=== PATIENT | female | born 1940 | race Caucasian/White ===

== ENCOUNTER 2020-08-31 11:40 | Emergency (ER) | payer MEDICARE, OTHER ==
[~2020-08-31] VITALS: Ht 167.7 cm; Wt 59.0 kg
--- NOTE | 2020-08-31 12:36 | ED General ---
General Chief Complaint: Dizziness/Syncope Stated Complaint: LIGHTHEADED; DIZZINESS; JOSE EYE PAIN Source of Information: Patient, Family History of Present Illness Date Seen by Provider: Aug 31, 2020 Time Seen by Provider: 11:51 Initial Comments 79-year-old female presenting with concerns for possible thyroid issue and wanting evaluated for having memory issues and general weakness for the last several weeks to months. She had her thyroid surgically removed in the remote past and says it was due to hyperthyroid or overactive thyroid. She has been taking [facility] Thyroid and is not sure if any dosing and has not followed up with anyone for several years to have any blood work done on her thyroid levels. In the last few weeks she has had swelling to her eyes and some drainage from the right eye. She has had increasing confusion and weakness. She denies any pain or burning with urination. She has had weakness where she has difficulty getting up and walking but has not actually fallen or hit her head. She denies any heart history or cancer history. She denies being short of breath or having a cough. She denies fever or chills. She is alert and oriented x3 states at times she has trouble remembering things Timing/Duration: Getting Worse (over the last few weeks to months) Associated Systoms: No Chest Pain, No Cough, No Diaphoresis, No Fever/Chills, No Headaches; Loss of Appetite (not really eating or drinking much in last few weeks), Malaise; No Nausea/Vomiting, No Rash, No Seizure, No Shortness of Air, No Syncope; Weakness (general), Other (chokes and coughs when she tries to drink water or eat) Allergies and Home Medications Allergies Coded Allergies: No Known Drug Allergies (Unverified , 08/31/20) Home Medications Unable to Obtain Active Prescriptions or Reported Meds Patient Home Medication List Home Medication List Reviewed: Yes Review of Systems Review of Systems Constitutional: No chills, No diaphoresis; dizziness; No fever; malaise, weakness EENTM: see HPI Respiratory: no symptoms reported Cardiovascular: no symptoms reported Gastrointestinal: see HPI Genitourinary: no symptoms reported Musculoskeletal: no symptoms reported Skin: no symptoms reported Psychiatric/Neurological: Denies Headache, Denies Numbness; Weakness (generalized) Past Uccsdhj-Dqvgen-Yohnii Hx Past Med/Social Hx: Reviewed Nursing Past Med/Soc Hx Past Medical History Surgeries: Yes Abdominal, Hysterectomy, Thyroidectomy Respiratory: No Cardiac: No Neurological: No Reproductive Disorders: No CHEF UNDER History: Hysterectomy Genitourinary: No Gastrointestinal: No Musculoskeletal: No Endocrine: Yes Hypothyroidsim (since surgery to remove Thyroid due to it being overactive) HEENT: No Cancer: No Psychosocial: No Physical Exam Vital Signs Vital Signs - First Documented 08/31/20 12:02 Temp 37.2 Pulse 80 Resp 20 B/P (MAP) 156/82 (106) Pulse Ox 98 O2 Delivery Room Air Capillary Refill : Height, Weight, BMI Height: '" Weight: lbs. oz. kg; BMI Method: General Appearance: No Apparent Distress, Thin, Other (bilateral exophthalmos, right worse than left) Eyes: Bilateral Eye PERRL, Bilateral Eye EOMI, Bilateral Eye Other (bilateral exophthalmos, right worse then left. some yellow drainage from right eye.) HEENT: Pharynx Normal Neck: Non Tender, Supple Respiratory: Chest Non Tender, Lungs Clear, Normal Breath Sounds, No Accessory Muscle Use, No Respiratory Distress Cardiovascular: Regular Rate, Rhythm, Normal Peripheral Pulses Gastrointestinal: Normal Bowel Sounds, No Pulsatile Mass, Non Tender, Soft Rectal: Deferred Extremity: Normal Capillary Refill, Normal Inspection, Non Tender, No Calf Tenderness, No Pedal Edema Neurologic/Psychiatric: Alert, Oriented x3, production machine tender II-XII Norm as Tested Skin: Normal Color, Warm/Dry Progress/Results/Core Measures Suspected Sepsis SIRS Temperature: Pulse: Respiratory Rate: Laboratory Tests 08/31/20 12:03: White Blood Count 8.5 Blood Pressure / Mean: Laboratory Tests 08/31/20 12:03: Creatinine 0.85, Platelet Count 298, Total Bilirubin 0.6 Results/Orders Lab Results Laboratory Tests Test 08/31/20 12:03 Range/Units White Blood Count 8.5 4.3-11.0 10^3/uL Red Blood Count 5.05 4.35-5.85 10^6/uL Hemoglobin 14.9 11.5-16.0 G/DL Hematocrit 44 35-52 % Mean Corpuscular Volume 86 80-99 FL Mean Corpuscular Hemoglobin 30 25-34 PG Mean Corpuscular Hemoglobin Concent 34 32-36 G/DL Red Cell Distribution Width 13.2 10.0-14.5 % Platelet Count 298 130-400 10^3/uL Mean Platelet Volume 10.3 7.4-10.4 FL Immature Granulocyte % (Auto) 0 % Neutrophils (%) (Auto) 80 H 42-75 % Lymphocytes (%) (Auto) 13 12-44 % Monocytes (%) (Auto) 7 0-12 % Eosinophils (%) (Auto) 0 0-10 % Basophils (%) (Auto) 0 0-10 % Neutrophils # (Auto) 6.8 1.8-7.8 X 10^3 Lymphocytes # (Auto) 1.1 1.0-4.0 X 10^3 Monocytes # (Auto) 0.6 0.0-1.0 X 10^3 Eosinophils # (Auto) 0.0 0.0-0.3 10^3/uL Basophils # (Auto) 0.0 0.0-0.1 10^3/uL Immature Granulocyte # (Auto) 0.0 0.0-0.1 10^3/uL Sodium Level 138 135-145 MMOL/L Potassium Level 3.5 L 3.6-5.0 MMOL/L Chloride Level 93 L 98-107 MMOL/L Carbon Dioxide Level 25 21-32 MMOL/L Anion Gap 20 H 5-14 MMOL/L Blood Urea Nitrogen 37 H 7-18 MG/DL Creatinine 0.85 0.60-1.30 MG/DL Estimat Glomerular Filtration Rate > 60 BUN/Creatinine Ratio 44 Glucose Level 92 70-105 MG/DL Calcium Level 9.6 8.5-10.1 MG/DL Corrected Calcium 9.8 8.5-10.1 MG/DL Magnesium Level 2.3 1.6-2.4 MG/DL Total Bilirubin 0.6 0.1-1.0 MG/DL Aspartate Amino Transf (AST/SGOT) 26 5-34 U/L Alanine Aminotransferase (ALT/SGPT) 16 0-55 U/L Alkaline Phosphatase 103 40-136 U/L Troponin I < 0.30 <0.30 NG/ML Pro-B-Type Natriuretic Peptide 718.4 H <75.0 PG/ML Total Protein 7.0 6.4-8.2 GM/DL Albumin 3.8 3.2-4.5 GM/DL Thyroid Stimulating Hormone (TSH) 0.14 L 0.35-4.94 UIU/ML Free Thyroxine 0.67 L 0.70-1.48 NG/DL Salicylates Level < 0.3 L 5.0-20.0 MG/DL Acetaminophen Level < 10 L 10-30 UG/ML Serum Alcohol < 10 <10 MG/DL My Orders Orders - TURNER RYAN MD Ua Culture If Indicated (08/31/20 12:17) Cbc With Automated Diff (08/31/20 12:17) Comprehensive Metabolic Panel (08/31/20 12:17) Alcohol (08/31/20 12:17) Drug Screen Stat (Urine) (08/31/20 12:17) Acetaminophen (08/31/20 12:17) Salicylate (08/31/20 12:17) Ekg Tracing (08/31/20 12:17) Ed Iv/Invasive Line Start (08/31/20 12:17) Monitor-Rhythm Ecg Trace Only (08/31/20 12:17) Troponin I Fs (08/31/20 12:17) Probnp Fs (08/31/20 12:17) Magnesium (08/31/20 12:17) Thyroid Stimulating Hormone (08/31/20 12:17) Free T4 (Free Thyroxine) (08/31/20 12:17) Triiodothyronine Total T3 (08/31/20 12:17) Ct Head Wo (08/31/20 12:25) Ct Orbit/Sella/Iac Wo (08/31/20 12:25) Ns Iv 1000 Ml (Sodium Chloride 0.9%) (08/31/20 14:15) Vital Signs/I&O 08/31/20 12:02 Temp 37.2 Pulse 80 Resp 20 B/P (MAP) 156/82 (106) Pulse Ox 98 O2 Delivery Room Air Capillary Refill : Progress Note #1: Progress Note obtain labs and ECG to evaluate for electrolyte imbalance or signs of infection. CT head and orbits to evaluate her memory issues and exophthalmos. Progress Note #2: Progress Note labs stable without acute significant abnormality to account for her symptoms. She did have a soft tissue mass in sinuses and nose that was causing some bony destruction and erosion of her frontal sinuses and vasogenic edema of frontal cortex bilateral lobes. When advised of this she and her friend requested to go to [facility] in . 1414 called transfer line at [facility] and spoke with DYLAN Sarabia. She advised that at this time they do not have any beds and are currently holding several patients in the ED. It is possible there might be discharges and a bed may open up this evening or tomorrow but she could not say for sure. Updated pt and friend and advised that no beds available currently at [facility] and they requested [facility] and if they did not have a bed, [facility], then [facility] if no beds. 1435 call to [facility] and spoke with DYLAN Li, at transfer line. She to ok pt info and will check about admit but they are also tight on beds at . 1655 transfer center called back and Dr. Blackmon is accepting physician and awaiting bed assignment. ECG Initial ECG Impression Date: Aug 31, 2020 Initial ECG Impression Time: 12:35 Initial ECG Rate: 79 Initial ECG Rhythm: Normal Sinus Initial ECG Comparisson: No Previous ECG Available Comment Normal sinus rhythm with a heart rate of 79 bpm. [place] interval 111 ms. QT interval 416 ms with a QTc interval 477 ms. She does have premature atrial complexes. Q waves in V1 and V2. No acute ST elevation. No prior tracing available for comparison. Diagnostic Imaging Diagonstic Imaging: CT Plain Films/CT/US/NM/MRI: head (and orbits) Comments [facility] [place], [place] NAME: DEEPIKA CALHOUN [facility] REC#: [id number] PT STATUS: REG ER : 1940 PHYSICIAN: TURNER RYAN MD ADMIT DATE: 08/31/20/ER FS Draft Date of Exam:08/31/20 CT HEAD WO EXAMINATION: CT head without contrast. TECHNIQUE: Multiple contiguous axial images were obtained through the brain without the use of intravenous contrast. All CT scans use one or more of the following dose optimizing techniques: automated exposure control, MA and/or KvP adjustment based on patient size and exam type or iterative reconstruction. HISTORY: Confusion and general weakness, worsening over weeks to months. COMPARISON: None available. FINDINGS: Mild diffuse cerebral volume loss with proportional enlargement of the ventricles and sulci. There is decreased sulcation along the right frontal lobe due to significant underlying edema within the right and left frontal lobes. The midline right and left frontal lobes demonstrate a heterogeneous appearance with gyral thickening. No acute intracranial hemorrhage or abnormal extra-axial fluid collections are present. Calcification of the intracranial ICAs. No hyperdense vessel. There is soft tissue attenuation seen throughout the nasal cavity, mastoid air cells, right ethmoid, and sphenoid sinuses as well as within the frontal sinuses. There is apparent erosion of the posterior and anterior frontal sinuses within the location of heterogeneity seen within the frontal lobe parenchyma. Soft tissue extends from the nasal cavity anteriorly along the nasal bones medial to the orbits. The mastoid air cells are clear. The visualized paranasal sinuses are clear. Please see the same day CT of the orbits for a more detailed discussion. IMPRESSION: Expansile, erosive soft tissue attenuation within the nasal cavity and paranasal sinuses which erodes posteriorly through the frontal sinuses and involves the bilateral anterior frontal lobes. This causes significant vasogenic edema within the bilateral frontal lobes posterior to the area of heterogeneity. This finding could represent an aggressive neoplastic or infectious process. Dictated on workstation # [id number] Dict: 08/31/20 1303 Trans: 08/31/20 1311 [id number] Interpreted by: BRICE JOE DO Electronically signed by: [facility] [place] NAME: ENRIQUE CALHOUN [facility] REC#: [id number] PT STATUS: REG ER : 1940 PHYSICIAN: TURNER RYAN MD ADMIT DATE: 08/31/20/ER FS Signed Date of Exam:08/31/20 CT ORBIT/SELLA/IAC WO PROCEDURE: CT orbit without contrast. TECHNIQUE: Multiple contiguous axial images were obtained through the facial bones without the use of intravenous contrast. Auto Exposure Controls were utilized during the CT exam to meet ALARA standards for radiation dose reduction. INDICATION: Right eye swelling and drainage. There is a complete opacification of the maxillary sinuses as well as the ethmoid and frontal sinuses. There is bony erosion both anteriorly and posteriorly through the calvarium especially within the frontal region. There is a diffuse edema throughout the frontal lobes bilaterally. No definite extra-axial fluid collections are seen. There is soft tissue swelling about the mid frontal region extending to the nose more prominent on the right. IMPRESSION: 1. Diffuse sinusitis or tumor throughout the paranasal sinuses. There is marked bony erosion noted within the ethmoid sinuses and frontal sinuses with associated soft tissue swelling. Diffuse white matter edema noted as well as some cortical gyri edema as well as in the frontal lobes. No discrete mass is seen. This likely is postinflammatory in nature. Would consider MRI of the head and face with and without IV gadolinium for further evaluation. Dictated by: Dictated on workstation # [id number] Dict: 08/31/20 1351 Trans: 08/31/20 1652 CVB [id number] Interpreted by: HAKAN THORNTON MD Electronically signed by: HAKAN THORNTON MD 08/31/20 165 Reviewed: Reviewed by Me Departure Impression Primary Impression: Mass of nasal sinus Additional Impressions: Exophthalmos Generalized weakness Disposition: 02 XFER SHT-TRM HOSP Condition: Stable Transfer Transfer Reason: Exceeds level of care (Needs ENT, Neurosurgery, possibly Oncology) Time Spoke to Accepting Phy: 16:55 Transfer Progress Notes 1435 call placed to [facility] about transfer of patient. I spoke with Jen Hall RN, at the transfer center. She did advise me that the hospital is tight on beds currently but will speak with admitting providers and try to find a bed and call back when a bed is available. 4525 DYLAN Li, from [facility] transfer center called and Dr. Blackmon accepting. Will call back once a bed assignment has been made. Transfer Facility: [facility] Method of Transfer: EMS Departure-Patient Inst. Referrals: NO,LOCAL PHYSICIAN (PCP/Family) Primary Care Physician Scripts Unable to Obtain Active Prescriptions or Reported Meds TURNER RYAN MD Aug 31, 2020 12:36
--- NOTE | 2020-08-31 13:12 | Diagnostic Imaging Report ---
EXAMINATION: CT head without contrast. TECHNIQUE: Multiple contiguous axial images were obtained through the brain without the use of intravenous contrast. All CT scans use one or more of the following dose optimizing techniques: automated exposure control, MA and/or KvP adjustment based on patient size and exam type or iterative reconstruction. HISTORY: Confusion and general weakness, worsening over weeks to months. COMPARISON: None available. FINDINGS: Mild diffuse cerebral volume loss with proportional enlargement of the ventricles and sulci. There is decreased sulcation along the right frontal lobe due to significant underlying edema within the right and left frontal lobes. The midline right and left frontal lobes demonstrate a heterogeneous appearance with gyral thickening. No acute intracranial hemorrhage or abnormal extra-axial fluid collections are present. Calcification of the intracranial ICAs. No hyperdense vessel. There is soft tissue attenuation seen throughout the nasal cavity, mastoid air cells, right ethmoid, and sphenoid sinuses as well as within the frontal sinuses. There is apparent erosion of the posterior and anterior frontal sinuses within the location of heterogeneity seen within the frontal lobe parenchyma. Soft tissue extends from the nasal cavity anteriorly along the nasal bones medial to the orbits. The mastoid air cells are clear. The visualized paranasal sinuses are clear. Please see the same day CT of the orbits for a more detailed discussion. IMPRESSION: Expansile, erosive soft tissue attenuation within the nasal cavity and paranasal sinuses which erodes posteriorly through the frontal sinuses and involves the bilateral anterior frontal lobes. This causes significant vasogenic edema within the bilateral frontal lobes posterior to the area of heterogeneity. This finding could represent an aggressive neoplastic or infectious process. Dictated by: Dictated on workstation # [id number]
[2020-08-31 13:15] LABS: HEMATOCRIT 44 % (35-52); HEMOGLOBIN 14.9 G/DL (11.5-16.0); MEAN CORPUSCULAR HEMOGLOBIN 30 PG (25-34); MEAN CORPUSCULAR HGB CONC 34 G/DL (32-36); MEAN CORPUSCULAR VOLUME 86 FL (80-99); MEAN PLATELET VOLUME 10.3 FL (7.4-10.4); PLATELET COUNT 298 10^3/uL (130-400); WHITE BLOOD COUNT 8.5 10^3/uL (4.3-11.0)
[2020-08-31 13:16] LABS: BASOPHILS % (AUTO) 0 % (0-10); EOSINOPHILS % (AUTO) 0 % (0-10); LYMPHOCYTES # (AUTO) 1.1 X 10^3 (1.0-4.0); LYMPHOCYTES % (AUTO) 13 % (12-44); MONOCYTES # (AUTO) 0.6 X 10^3 (0.0-1.0); MONOCYTES % (AUTO) 7 % (0-12); NEUTROPHILS # (AUTO) 6.8 X 10^3 (1.8-7.8); NEUTROPHILS % (AUTO) 80 % (42-75)
[2020-08-31 13:39] LABS: MAGNESIUM 2.3 MG/DL (1.6-2.4)
[2020-08-31 13:40] LABS: ALANINE AMINOTRANSFERASE 16 U/L (0-55); ALKALINE PHOSPHATASE 103 U/L (40-136); BILIRUBIN,TOTAL 0.6 MG/DL (0.1-1.0); BUN/CREATININE RATIO 44; CALCIUM 9.6 MG/DL (8.5-10.1); CARBON DIOXIDE 25 MMOL/L (21-32); CHLORIDE 93 MMOL/L (98-107); CREATININE SERUM 0.85 MG/DL (0.60-1.30); GFR ESTIMATED > 60; GLUCOSE 92 MG/DL (70-105); POTASSIUM 3.5 MMOL/L (3.6-5.0); SODIUM 138 MMOL/L (135-145)
[2020-08-31 13:41] LABS: ACETAMINOPHEN < 10 UG/ML (10-30); ALBUMIN 3.8 GM/DL (3.2-4.5); SALICYLATE < 0.3 MG/DL (5.0-20.0)
--- NOTE | 2020-08-31 14:06 | Diagnostic Imaging Report ---
PROCEDURE: CT orbit without contrast. TECHNIQUE: Multiple contiguous axial images were obtained through the facial bones without the use of intravenous contrast. Auto Exposure Controls were utilized during the CT exam to meet ALARA standards for radiation dose reduction. INDICATION: Right eye swelling and drainage. There is a complete opacification of the maxillary sinuses as well as the ethmoid and frontal sinuses. There is bony erosion both anteriorly and posteriorly through the calvarium especially within the frontal region. There is a diffuse edema throughout the frontal lobes bilaterally. No definite extra-axial fluid collections are seen. There is soft tissue swelling about the mid frontal region extending to the nose more prominent on the right. IMPRESSION: 1. Diffuse sinusitis or tumor throughout the paranasal sinuses. There is marked bony erosion noted within the ethmoid sinuses and frontal sinuses with associated soft tissue swelling. Diffuse white matter edema noted as well as some cortical gyri edema as well as in the frontal lobes. No discrete mass is seen. This likely is postinflammatory in nature. Would consider MRI of the head and face with and without IV gadolinium for further evaluation. Dictated by: Dictated on workstation # [id number]
[2020-08-31] MEDS ORDERED: NS IV 1000 ML 1,000 ML IV SCH (14:15)
[2020-08-31 15:46] LABS: FREE T4 (FREE THYROXINE) 0.67 NG/DL (0.70-1.48)
[2020-08-31 18:40] VITALS: BP 185/77
[2020-09-01 09:03] LABS: BILIRUBIN,URINE 1+ (NEGATIVE); CLARITY,URINE CLOUDY; COLOR,URINE YELLOW; GLUCOSE, URINE (UA) NEGATIVE (NEGATIVE); KETONES,URINE 1+ (NEGATIVE); NITRITE,URINE NEGATIVE (NEGATIVE); PROTEIN,URINE NEGATIVE (NEGATIVE)
[2020-09-01 09:04] LABS: AMORPHOUS SEDIMENT,UR LARGE AMOR URATES /LPF; BACTERIA,URINE NEGATIVE /HPF; LEUKOCYTE ESTERASE ,URINE NEGATIVE (NEGATIVE); RBC,URINE 0-2 /HPF; WBC,URINE 0-2 /HPF
[2020-09-01 09:05] LABS: AMPHETAMINE SCREEN, URINE NEGATIVE (NEGATIVE); BARBITURATE SCREEN URINE NEGATIVE (NEGATIVE); BENZODIAZEPINES SCREEN URINE NEGATIVE (NEGATIVE); CANNABINOID SCREEN, URINE NEGATIVE (NEGATIVE); COCAINE SCREEN URINE NEGATIVE (NEGATIVE); METHADONE STAT NEGATIVE (NEGATIVE); METHAMPHETAMINE SCREEN URINE S NEGATIVE (NEGATIVE); OPIATE SCREEN URINE NEGATIVE (NEGATIVE); OXYCODONE STAT NEGATIVE (NEGATIVE); PROPOXYPHENE STAT NEGATIVE (NEGATIVE); TRICYCLIC ANTIDEPRESSANTS SCRE NEGATIVE (NEGATIVE)
== END 2020-08-31 18:40 | disposition short-term general hospital (02) ==
LOC: EDBD 11:43 → ER FS 11:43
DX: J34.9 Unspecified disorder of nose and nasal sinuses (principal); H05.20 Unspecified exophthalmos; R53.1 Weakness; Z90.89 Acquired absence of other organs
CPT/HCPCS: 36415; 70450; 70480; 80053; 80306; 81000; 83735; 83880; 84439; 84443; 84480; 84484; 85025; 93005; 99285; G0480 ×3; 80320; 80329